=== PATIENT | female | born 1985 | race Caucasian/White ===

== ENCOUNTER 2021-12-19 10:45 | Emergency (ER) | payer OTHER ==
[2021-12-19 13:07] LABS: HEMOGLOBIN 13.9 gm/dl (12.3-15.3); RED BLOOD COUNT 4.4 M/UL (4.00-5.10); WHITE BLOOD COUNT 4.9 K/UL (4.5-11.0)
[2021-12-19 13:30] LABS: BUN/CREATININE RATIO 7 (0-10)
[2021-12-19] MEDS ORDERED: IBUPROFEN600 MG PO (13:46)
== END 2021-12-19 14:20 | disposition home or self-care (01) ==
LOC: ER1 10:45
PROVIDERS: Nurse Practitioner
DX: U07.1 COVID-19 (principal); Z90.49 Acquired absence of other specified parts of digestive tract
CPT/HCPCS: 0240U; 80048; 81001; 85025; 87081; 87880; 96374; 99284; J1885